=== PATIENT | male | born 1995 | race Caucasian/White ===

== ENCOUNTER 2017-02-19 23:30 | Emergency (ER) | payer MEDICAID ==
[2017-02-19 23:37] VITALS: TEMP 98.1
--- NOTE | 2017-02-19 23:46 | EDPHY ---
H & P Stated Complaint: dizzy, slurring speech HPI/ROS: HPI CHIEF COMPLAINT: Numbness tingling hand feet and around mouth, shortness of breath HISTORY OF PRESENT ILLNESS: This patient very pleasant 21-year-old male, otherwise healthy does have significant past medical history for 2 spontaneous pneumothorax. 1 right lung 1 left lung. Denies any other significant medical history. He states that he was smoking marijuana out of a Bong. When he suddenly developed a coughing spell and shortness of breath. He then developed numbness and tingling around mouth hands and feet. Hyperventilating. Came to the emergency room for evaluation. Past Medical History: No medical history Past Surgical History: Spontaneous pneumothorax x2 requiring chest tube bilaterally. Social History: Smokes marijuana daily. Denies illicit drugs alcohol tobacco. Family History: Noncontributory ROS REVIEW OF SYSTEMS: A comprehensive 10 point review of systems is otherwise negative aside from elements mentioned in the history of present illness. Exam Constitutional appears well nontoxic triage nursing summary reviewed, vital signs reviewed, awake/alert. Eyes normal conjunctivae and sclera, EOMI, PERRLA. HENT normal inspection, atraumatic, moist mucus membranes, no epistaxis, neck supple/ no meningismus, no raccoon eyes. Respiratory good breath sounds bilaterally, clear to auscultation bilaterally, normal breath sounds, no respiratory distress, no wheezing. Cardiovascular rate normal, regular rhythm, no murmur, no edema, distal pulses normal. Gastrointestinal soft, non-tender, no rebound, no guarding, normal bowel sounds, no distension, no pulsatile mass. Genitourinary no CVA tenderness. Musculoskeletal no midline vertebral tenderness, full range of motion, no calf swelling, no tenderness of extremities, no meningismus, good pulses, neurovascularly intact. Skin pink, warm, & dry, no rash, skin atraumatic. Neurologic awake, alert and oriented x 3, AAOx3, moves all 4 extremities equally, motor intact, sensory intact, CN II-XII intact, normal cerebellar, normal vision, normal speech. Psychiatric normal mood/affect. Heme/Lymph/Immune no lymphadenopathy. Differential Diagnosis: Includes but is not limited to in a particular order acute anxiety, panic attack, anxiety tach, pneumothorax Medical Decision Making: Plan for this patient IV establishment IV fluid bolus , check basic blood work, since chest x-ray two view. Will pneumothorax. However on exam. Good breath sounds bilaterally normal oxygen saturation. Re-evaluation: Chest x-ray two view reviewed. No pneumothorax. A interpreted by myself as well as Radiology. Source: Patient - Personal History Current Tetanus/Diphtheria Vaccine: Yes Current Tetanus Diphtheria and Acellular Pertussis (TDAP): Yes - Medical/Surgical History Hx Asthma: No Hx Chronic Respiratory Disease: No Hx Diabetes: No Hx Cardiac Disease: No Hx Renal Disease: No Hx Cirrhosis: No Hx Alcoholism: No Hx HIV/AIDS: No Hx Splenectomy or Spleen Trauma: No Other PMH: PMH: PNUEMOTHORAX. PSH: LUNG SURG - Social History Smoking Status: Current some day smoker Constitutional: Initial Vital Signs Temperature (C) 36.7 C 02/19/17 23:35 Heart Rate 79 02/19/17 23:35 Respiratory Rate 24 H 02/19/17 23:35 Blood Pressure 108/71 02/19/17 23:35 O2 Sat (%) 96 02/19/17 23:35 O2 Delivery Mode Room Air Allergies/Adverse Reactions: No Known Allergies Allergy (Unverified 02/19/17 23:34) Medical Decision Making - Diagnostics Imaging Results: Imaging Impressions Chest X-Ray 02/19/17 23:53 Impression: 1. No evidence of pneumothorax. 2. Hyperexpanded lungs possibly from increased inspiratory effort. Rule out air trapping. 3. Surgical clips are seen at both lung apices. - Data Points Laboratory Results: Laboratory Results 02/20/17 00:05 02/20/17 00:05 02/20/17 02/20/17 00:05 00:05 WBC 9.35 10^3/uL 10^3/uL (3.80-9.50) RBC 4.79 10^6/uL 10^6/uL (4.40-6.38) Hgb 15.7 g/dL g/dL (13.7-17.5) Hct 43.4 % % (40.0-51.0) MCV 90.6 fL fL (81.5-99.8) MCH 32.8 pg pg (27.9-34.1) MCHC 36.2 g/dL g/dL (32.4-36.7) RDW 11.9 % % (11.5-15.2) Plt Count 260 10^3/uL 10^3/uL (150-400) MPV 10.3 fL fL (8.7-11.7) Neut % (Auto) 64.8 % % (39.3-74.2) Lymph % (Auto) 28.4 % % (15.0-45.0) [place] % (Auto) 5.7 % % (4.5-13.0) Eos % (Auto) 0.6 % % (0.6-7.6) Baso % (Auto) 0.3 % % (0.3-1.7) Nucleat RBC Rel Count 0.0 % % (0.0-0.2) Absolute Neuts (auto) 6.05 10^3/uL 10^3/uL (1.70-6.50) Absolute Lymphs (auto) 2.66 10^3/uL 10^3/uL (1.00-3.00) Absolute Monos (auto) 0.53 10^3/uL 10^3/uL (0.30-0.80) Absolute Eos (auto) 0.06 10^3/uL 10^3/uL (0.03-0.40) Absolute Basos (auto) 0.03 10^3/uL 10^3/uL (0.02-0.10) Absolute Nucleated RBC 0.00 10^3/uL 10^3/uL (0-0.01) Immature Gran % 0.2 % % (0.0-1.1) Immature Gran # 0.02 10^3/uL 10^3/uL (0.00-0.10) Sodium 141 mEq/L mEq/L (134-144) Potassium 3.5 mEq/L mEq/L (3.5-5.2) Chloride 104 mEq/L mEq/L (97-110) Carbon Dioxide 20 mEq/l L mEq/l (22-31) Anion Gap 17 mEq/L H mEq/L (8-16) BUN 28 mg/dL H mg/dL (7-23) Creatinine 0.8 mg/dL mg/dL (0.7-1.3) Estimated GFR > 60 Glucose 146 mg/dL H mg/dL (70-100) Calcium 10.3 mg/dL mg/dL (8.5-10.4) Medications Given: Discontinued Medications Sodium Chloride (Ns) 1,000 mls @ 0 mls/hr IV EDNOW ONE; Wide Open PRN Reason: Protocol Stop: 02/19/17 23:54 Last Admin: 02/20/17 00:07 Dose: 1,000 mls Departure - Departure Disposition: Home, Routine, Self-Care Clinical Impression: Anxiety Condition: Good Instructions: Anxiety (ED) Additional Instructions: 1.Stay well-hydrated drink lots of fluids. 2. Return emergency room if there is worsening symptoms questions or concerns. Referrals: NONE *PRIMARY CARE P,. [Primary Care Provider] - As per Instructions
[2017-02-19] MEDS ORDERED: NS 1,000 ML IV ONE (23:53)
[2017-02-20 00:13] LABS: % IMMATURE GRANULYOCYTES 0.2 % (0.0-1.1); ABSOLUTE IMMATURE GRANULOCYTES 0.02 10^3/uL (0.00-0.10); ADD DIFF? NO; ADD MORPH? NO; ADD SCAN? NO; ATYPICAL LYMPHOCYTE FLAG 0 (0-99); FRAGMENT RBC FLAG 0 (0-99); HEMATOCRIT 43.4 % (40.0-51.0); HEMOGLOBIN 15.7 g/dL (13.7-17.5); LEFT SHIFT FLG 0 (0-99); LIPEMIA HEMOLYSIS FLAG 90 (0-99); MEAN CELL HEMOGLOBIN 32.8 pg (27.9-34.1); MEAN CELL HEMOGLOBIN CONCENTR. 36.2 g/dL (32.4-36.7); MEAN CELL VOLUME 90.6 fL (81.5-99.8); MEAN PLATELET VOLUME 10.3 fL (8.7-11.7); PLATELET CLUMPS FLAG 30 (0-99); PLATELET COUNT 260 10^3/uL (150-400); RED BLOOD CELL COUNT 4.79 10^6/uL (4.40-6.38); RED CELL DISTRIBUTION WIDTH 11.9 % (11.5-15.2)
[2017-02-20 00:28] LABS: ANION GAP 17 mEq/L (8-16); CALCIUM 10.3 mg/dL (8.5-10.4); CARBON DIOXIDE 20 mEq/l (22-31); CHLORIDE 104 mEq/L (97-110); CREATININE 0.8 mg/dL (0.7-1.3); GLOMERULAR FILTRATION RATE > 60; GLUCOSE 146 mg/dL (70-100); POTASSIUM 3.5 mEq/L (3.5-5.2); SODIUM 141 mEq/L (134-144)
[2017-02-20 00:33] VITALS: RESP 16
[2017-02-20 00:58] VITALS: BP 117/83; PULSE 80; O2SAT 96
== END 2017-02-20 00:58 | disposition home or self-care (01) ==
DX: F41.9 Anxiety disorder, unspecified (principal); E86.9 Volume depletion, unspecified; F17.200 Nicotine dependence, unspecified, uncomplicated

== ENCOUNTER 2017-05-02 12:37 | Emergency (ER) | payer MEDICAID ==
[2017-05-02 12:43] VITALS: TEMP 99; O2SAT 97
--- NOTE | 2017-05-02 13:52 | CPEKG ---
Heart Rate: 67 RR Interval: 896 P-R Interval: 148 QRSD Interval: 98 QT Interval: 412 QTC Interval: 435 P [place]: 24 QRS [place]: 82 T Wave [place]: 67 EKG Severity - NORMAL ECG - EKG Impression: SINUS RHYTHM Electronically Signed By: Jai Cordova 02-May-2017 14:07:03
--- NOTE | 2017-05-02 14:15 | EDPHY ---
H & P Time Seen by Provider: 05/02/17 13:55 HPI/ROS: CHIEF COMPLAINT: Right sided chest pain HISTORY OF PRESENT ILLNESS: This 21 year old man history of spontaneous pneumothorax in both sides with thoracoscopy in [address] [facility]. He presents the ED with pain in the right side of his chest which is described as a sharp soreness for the last 3 days. It is worse with deep breath and some movements. Not associated with cough or fever or weakness or numbness in arms. Does not radiate. Of note he was able about a week ago and stand fell on his chest but does not know if it is related. Also over the past week he has been having intermittent pain behind his right knee which is now currently gone. REVIEW OF SYSTEMS: Eye: no change in vision ENT: no sore throat Cardiac: No palpitations or syncope Pulmonary: No coughing, see HPI. No hemoptysis. Abdomen: no vomiting, diarrhea, abdominal pain Musculoskeletal: no back pain or leg swelling Skin: no rash Neuro: no headache Constitutional: no fever : no urinary symptoms A comprehensive 10 point review of systems is otherwise negative aside from elements mentioned in the history of present illness. PAST MEDICAL HISTORY: Pneumothorax as above. Family history: Negative for premature coronary disease or DVT or PE Social history: Nonsmoker, no recent trauma or immobilization. General Appearance: Alert and conversant, cooperative. Eyes: No scleral icterus. ENT, Mouth: Normal mucous membranes. Respiratory: Normal respiratory effort, breath sounds equal, lungs are clear to auscultation. Cardiovascular: Regular rate and rhythm. Gastrointestinal: Abdomen is soft and non tender. Neurological: Alert and oriented x3. Normally conversant. Face symmetric, normal movement and sensation in all extremities. Skin: Warm and dry, no rashes. Musculoskeletal: No peripheral edema and no joint swelling. Normal range of motion of both knees, no calf swelling calf tenderness. Psychiatric: Not agitated. Emergency Department course/MDM: Normal EKG and chest x-ray. D-dimer performed because of leg symptoms and slightly elevated heart rate. More likely to be muscular or inflammatory. 1456: Results discussed, D-dimer negative, stable for discharge Smoking Status: Former smoker Constitutional: Initial Vital Signs Temperature (C) 37.2 C 05/02/17 12:40 Heart Rate 90 05/02/17 12:40 Respiratory Rate 16 05/02/17 12:40 Blood Pressure 111/73 05/02/17 12:40 O2 Sat (%) 97 05/02/17 12:40 O2 Delivery Mode Room Air Allergies/Adverse Reactions: No Known Allergies Allergy (Unverified 05/02/17 12:40) Home Medications: Medication Instructions Recorded NK [No Known Home Meds] 05/02/17 Medical Decision Making - Diagnostics EKG Interpretation: 12-lead EKG interpreted by me; official reading is in trace master. My interpretation is Sinus rhythm, normal, no ischemic changes. Imaging Results: Imaging Impressions Chest X-Ray 05/02/17 13:04 Impression: Stable chest with no acute findings. Differential Diagnosis: Differential diagnosis considered for chest pain including but not limited to myocardial ischemia, aortic dissection, pericarditis, pulmonary embolus, chest wall pain, pleural inflammation and pulmonary infectious causes. - Data Points Laboratory Results: Laboratory Results 05/02/17 14:20 05/02/17 05/02/17 14:20 14:20 D-Dimer < 0.27 ug/mLFEU ug/mLFEU (0.00-0.50) Sodium 141 mEq/L mEq/L (134-144) Potassium 4.4 mEq/L mEq/L (3.5-5.2) Chloride 102 mEq/L mEq/L (97-110) Carbon Dioxide 27 mEq/l mEq/l (22-31) Anion Gap 12 mEq/L mEq/L (8-16) BUN 24 mg/dL H mg/dL (7-23) Creatinine 0.8 mg/dL mg/dL (0.7-1.3) Estimated GFR > 60 Glucose 83 mg/dL mg/dL (70-100) Calcium 10.1 mg/dL mg/dL (8.5-10.4) Departure - Departure Disposition: Home, Routine, Self-Care Clinical Impression: Chest pain Qualifiers: Chest pain type: unspecified Qualified Code(s): R07.9 - Chest pain, unspecified Condition: Good Instructions: Chest Pain (ED) Additional Instructions: Negative D-dimer test. No pneumothorax on chest x-ray. Referrals: Venessa Mcgraw MD [Primary Care Provider] - As per Instructions
[2017-05-02 14:42] LABS: ANION GAP 12 mEq/L (8-16); CALCIUM 10.1 mg/dL (8.5-10.4); CARBON DIOXIDE 27 mEq/l (22-31); CHLORIDE 102 mEq/L (97-110); CREATININE 0.8 mg/dL (0.7-1.3); GLOMERULAR FILTRATION RATE > 60; GLUCOSE 83 mg/dL (70-100); POTASSIUM 4.4 mEq/L (3.5-5.2); SODIUM 141 mEq/L (134-144)
[2017-05-02 15:35] VITALS: BP 110/66; PULSE 61; RESP 12
== END 2017-05-02 15:34 | disposition home or self-care (01) ==
DX: R07.9 Chest pain, unspecified (principal); Z87.891 Personal history of nicotine dependence

== ENCOUNTER → 2018-07-01 | Outpatient (CLI) | payer MEDICAID | LOC: FIMAGING 08:14 | PROVIDERS: ATTEND Physician Assistant | DX: M25.531 Pain in right wrist (principal) ==